=== PATIENT | male | born 1945 | race Caucasian/White ===

== ENCOUNTER 2018-04-14 10:40 | Emergency (ER) | payer MEDICARE, OTHER ==
[2018-04-14] MEDS ORDERED: LEVETIRACETAM 1000 MG/NACL-ISO 1,000 MG/100 ML RTUPB IV ONE (11:10)
--- NOTE | 2018-04-14 11:16 | ER Document Report ---
ED General - General Stated Complaint: POSSIBLE SEIZURE Time Seen by Provider: 04/14/18 11:09 Primary Care Provider: EULA WALKER MD [Primary Care Provider] - Follow up as needed - HPI Notes: Patient is a 72-year-old male that presents to the emergency department for chief complaint of new onset seizures. Patient has brain cancer and had surgery in January for tumor resection. He has not had any seizures in the past. Patient is currently undergoing radiation treatment at [facility]. Today patient's states that she had just left the room for a second and when she came back and he was unconscious having a s eizure. She states he was shaking all over. The seizure lasted for a few minutes and was self-limited. When EMS arrived they reported a postictal state. He had 2 more witnessed seizures with EMS without resolution of his postictal state. Patient was given Versed by EMS for his seizing. HPI is limited because of patient's current mental status. Past Medical History: Brain cancer Past Surgical History: Brain tumor resection Social History: Reviewed in chart Family History: Reviewed and noncontributory for presenting illness Allergies: Reviewed, see documented allergy list. REVIEW OF SYSTEMS: CONSTITUTIONAL : No fever No chills No diaphoresis No recent illness EENT: No vision changes No congestion No sore throat CARDIOVASCULAR: No chest pain No palpitations RESPIRATORY: No shortness of breath No cough No difficulty breathing GASTROINTESTINAL: No abdominal pain No nausea No vomiting No diarrhea GENITOURINARY: No dysuria No hematuria No difficulty urinating MUSCULOSKELETAL: No back pain No leg pain No arm pain SKIN: No rashes No lesions LYMPHATIC: No swollen, enlarged glands. NEUROLOGICAL: Seizure No lightheadedness No headache No weakness No paresthesias PSYCHIATRIC: No anxiety No depression PHYSICAL EXAMINATION: Vital signs reviewed, nursing noted reviewed. GENERAL: Postictal, in no acute distress HEAD: Atraumatic, normocephalic. EYES: Left pupil mid position and fixed, normal right eye exam, pupils round and reactive to light. sclera anicteric, conjunctiva are normal. ENT: nares patent, oropharynx clear without exudates. Dry mucous membranes. NECK: supple without lymphadenopathy LUNGS: Breath sounds clear to auscultation bilaterally and equal. No wheezes rales or rhonchi. HEART: Regular rate and rhythm without murmurs ABDOMEN: Soft, nontender, normoactive bowel sounds. No rebound, guarding, or rigidity. No masses appreciated. EXTREMITIES: Nontender, good range of motion, no pitting or edema. NEUROLOGICAL: GCS 10, moving all extremities spontaneously and following motor commands, eyes open to painful stimuli, mumbling incomprehensible sounds SKIN: Warm, Dry, normal turgor, no rashes or lesions noted on exposed skin Past Medical History - Social History Smoking Status: Never Smoker Family History: Reviewed & Not Pertinent Course - Re-evaluation Re-evalutation: 04/14/18 11:16 Vitals reviewed. Nursing notes reviewed. Patient appears postictal but is attempting to squeeze his hand to verbal commands, his GCS is 10 and he appears to be protecting his airway. Seizure precautions were started. Patient placed on telemetry monitoring. There is concern of possible intracranial hemorrhage because of his history of brain cancer and surgery. Patient taken over to CT scan immediately after initial evaluation. 04/14/18 11:37 Patient reevaluated and is more alert. His GCS is now 13. He has become agitated and was placed in Trendelenburg to help prevent from having him get out of the bed I requested nursing staff placed the head of bed at 30 degrees and use soft restraints as needed for patient's agitation if he is not redirectable. Patient CT brain shows right-sided mass lesion with effacement of his right ventricle and midline shift. Patient had his previous surgery performed at [facility] and is requiring a neurosurgery evaluation this is why he will be transferred back to [facility] for further care. Patient's family is in agreement with this plan of care. Patient was ordered Keppra to help prevent further seizure activity. 04/14/18 11:49 Patient's care discussed with Dr. Costello, neurosurgery at [facility]. He would like to see the patient at the his facility and recommends admission to hospitalist service, hospitalist currently being paged. Patient will be given 20 mg IV Decadron as recommended by Dr. Costello. 04/14/18 12:26 Patient's care discussed with Dr. France who accepts patient for admission at ICU . Patient's GCS is still 13 and he is protecting his airway. We will continue to monitor his mental status while awaiting transfer. Head CT 04/14/18 11:09 IMPRESSION: Increasing edema with mass effect in the right cerebral hemisphere in a patient with history of glioblastoma. Neuro surgical consultation is recommended. No hemorrhage. EVIDENCE OF ACUTE STROKE: NO. Discharge - Discharge Clinical Impression: Status epilepticus, Midline shift of brain, Intracranial mass Condition: Stable Disposition: [facility] Referrals: EULA WALKER MD [Primary Care Provider] - Follow up as needed
[2018-04-14] MEDS ORDERED: DEXAMETHASONE SOD PHOS INJ 10 MG/1 ML VIAL IV ONE (11:46)
--- NOTE | 2018-04-14 11:48 | RADIOLOGY REPORT (SQ) ---
EXAM DESCRIPTION: CT HEAD WITHOUT COMPLETED DATE/TIME: 04/14/2018 11:25 am REASON FOR STUDY: seizure COMPARISON: MRI brain 02/16/2018 vania Sandeep TECHNIQUE: Axial images acquired through the brain without intravenous contrast. Images reviewed wi th bone, brain and subdural windows. Additional sagittal and coronal reconstructions were generated. Images stored on PACS. All CT scanners at this facility use dose modulation, iterative reconstruction, and/or weight based d osing when appropriate to reduce radiation dose to as low as reasonably achievable (ALARA). [facility]: Dose Right [facility]: CareDose [facility]: Dose Right [facility]: Teradose 4D [facility]: Directr RADIATION DOSE: CT Rad equipment meets quality standard of care and radiation dose reduction techniq ues were employed. CTDIvol: 55.2 mGy. DLP: 1084 mGy-cm. mGy. LIMITATIONS: None. FINDINGS: There is geographic low density adjacent to the right parietal craniotomy. There is cytot oxic and vasogenic edema with effacement of the right frontal and occipital horns and 4 mm right to l eft midline shift. Edema extends into the right temporal lobe. No extra-axial fluid. No hemorrhage . Posterior fossa unremarkable. IMPRESSION: Increasing edema with mass effect in the right cerebral hemisphere in a patient with his tory of glioblastoma. Neuro surgical consultation is recommended. No hemorrhage. EVIDENCE OF ACUTE STROKE: NO. COMMENT: Findings were discussed with Dr. Obrien at 1126 hours. Quality ID # [id number]: Final reports with documentation of one or more dose reduction techniques (e.g., Au tomated exposure control, adjustment of the mA and/or kV according to patient size, use of iterative reconstruction technique) TECHNICAL DOCUMENTATION: JOB ID: [id number] [employer]- All Rights Reserved Reading location - IP/workstation name: [email or web address]
[2018-04-14 13:03] LABS: HEMATOCRIT 43.3 % (37.9-51.0); HEMOGLOBIN 14.7 g/dL (13.5-17.0); MEAN CORPUSCULAR HGB CONC 33.9 g/dL (32.0-36.0); MEAN CORPUSCULAR VOLUME 91 fl (80-97); PLATELET COUNT 236 10^3/uL (150-450); RED BLOOD COUNT 4.74 10^6/uL (4.35-5.55); RED CELL DISTRIBUTION WIDTH 16.8 % (11.5-14.0); WHITE BLOOD COUNT 9.3 10^3/uL (4.0-10.5)
[2018-04-14 13:08] LABS: PROTHROMBIN TIME 24.6 SEC (11.4-15.4)
[2018-04-14 13:19] LABS: ANION GAP 11 (5-19); BLOOD UREA NITROGEN 14 mg/dL (7-20); CALCIUM 9.2 mg/dL (8.4-10.2); CARBON DIOXIDE 25 mmol/L (22-30); CHLORIDE 106 mmol/L (98-107); GLUCOSE 222 mg/dL (75-110); POTASSIUM 4.3 mmol/L (3.6-5.0); SODIUM 142.4 mmol/L (137-145)
[2018-04-14 13:25] VITALS: BP 131/71
[2018-04-14 13:31] LABS: ABSOLUTE LYMPHOCYTES# (MANUAL) 0.6 10^3/uL (0.5-4.7); ABSOLUTE MONOCYTES # (MANUAL) 0.4 10^3/uL (0.1-1.4); ABSOLUTE NEUTROPHILS# (MANUAL) 8.4 10^3/uL (1.7-8.2); ANISOCYTOSIS 1+; BASOPHILS % (MANUAL) 0 % (0-2); EOSINOPHILS % (MANUAL) 0 % (0-6); LYMPHOCYTES % (MANUAL) 6 % (13-45); MONOCYTES % (MANUAL) 4 % (3-13); OVALOCYTES SLIGHT; PLATELET COMMENT ADEQUATE; SEGMENTED NEUTROPHILS % (MAN) 90 % (42-78); TOTAL CELLS COUNTED 100
== END 2018-04-14 13:10 | disposition short-term general hospital (02) ==
LOC: ER 10:40
DX: G40.901 Epilepsy, unspecified, not intractable, with status epilepticus (principal); C71.9 Malignant neoplasm of brain, unspecified; R45.1 Restlessness and agitation; Z98.890 Other specified postprocedural states; Z78.1 Physical restraint status
CPT/HCPCS: 99285; 96375; 96365; 96366; 36415; 85025; 85610; 80048; 70450; J1100; J1953